=== PATIENT | female | born 1940 | race Caucasian/White ===

== ENCOUNTER 2016-12-03 13:42 | Outpatient (RCR) | payer MEDICARE ==
[~2016-12-03 13:42] MED LIST changes: -ASPI-860 PO; -ASPI325T4 PO; -CHOL100092 PO; -INDA1.25 PO; -RED600CA2 PO; -SACC250C9 PO
--- NOTE | 2016-12-06 13:16 | PT/OT/ST INITIAL EVALUATION ---
Department of Health and Human Services Form Approved Health Care Financing Administration OMB No. [id number] PLAN OF CARE/ASSESSMENT FOR OUTPATIENT REHABILITATION (Complete for Initial Claims Only) 1. LAST NAME Karan FIRST NAME Monik Hughes 2. ACC # [id number] 3. [id number] 4. PROVIDER NO. [id number] 5. 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 PRIOR THERAPY (Same condition) 7. PRIMARY DX History of CVA with residual deficit 8. SECONDARY DX Cervical dysphagia 9. ONSET DATE September 07, 2016 10. REFERRAL DATE November 17, 2016 11. SOC. DATE December 03, 2016 1356 12. CHARGES 13. G. CODES Currently [id number] 1 to 19% impaired. Goal [id number]-FA 1 to 19% impaired. Discharge [id number] 1 to 19% impaired. 14. PRIOR LEVEL OF FUNCTION; PERTINENT HISTORY (Prior therapy results, reason for referral.) S: Prior to today's therapy session, the patient did consent to today's evaluation and treatment. The patient is a 75-year-old female referred to speech therapy by Dr. Busch to address cervical dysphagia. The patient rates her overall and general health as fair. 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 She states she had cataract surgery and after her cataract surgery she began having vertigo. She had MRIs and CTs completed that showed she had 2 small acute CVAs. She then had some heart testing done and had a pacemaker placed. She was not having any trouble swallowing and then November 12, she began having swallowing difficulties. She feels like it is mainly difficulties with "scratchy things", which are biscuits or peanut brittle or bread and she has to take a drink to help wash her food down. She feels like her swallow is slower. Prior level of function: Prior to this, she has not had any difficulties. Therapy History: She has never received therapy for this. Occupational and social history: She has lives at home. Aggravating factors: Include things such as biscuits or "scratchy foods." Diagnostic tests: She has had no prior diagnostic testing for this. Past medical history includes cervical dystonia, in which she receives Botox in her neck for approximately every 3 months. She does have a pacemaker. She had 2 small acute strokes, vertigo and cataract surgery in August. Medication list: Medications were reviewed with the patient. 15. INITIAL ASSESSMENT/SAFETY PRECAUTIONS/MEDICAL COMPLICATIONS (Level of function at start of care. Be specific, use objective measures, list problems.) O: APPEARANCE AND OBSERVATION: Upon assessment, the patient was given a modified barium swallow study. She was given pudding-thick through thin liquid consistencies, ground meat, crackers and a 10-mm barium pill. On all of these the patient demonstrated efficient oral motility. She was able to clear her oral cavity and she had proper bolus control of the posterior tongue. She had a pharyngeal swallow trigger without delay. She did not initially clear her vallecula; however, she independently cleared her vallecula with a secondary swallow. She had no piriform sinus residue, no laryngeal penetration and no aspiration. 16. INITIAL POC: (Specify procedures, modalities, short and fdc goals) A: The patient presents with a mild pharyngeal dysphagia secondary to vallecula residue. The patient demonstrates a mild pharyngeal dysphagia secondary to mild vallecula residue, which was cleared by a secondary swallow. Recommend regular diet with thin liquids followed with a secondary swallow as needed for pharyngeal residue, however, no pharyngeal residue was seen on the exam. The patient demonstrated understanding of this and it was explained to her if she feels like her swallowing is not getting better; she can always come in for therapy. This is not something that she wanted to do at this time. PLAN: Plan to discharge this patient at this time secondary to evaluation only. 17. FUNCTIONAL LEVEL (End of claim period) 18. PHYSICIAN SIGNATURE ? ON FILE OR ENTER HERE: 19. DATE: I certify the need for these services furnished under this plan of care and if for partial hospitalization. 20. CERTIFICATION FROM THROUGH FORM FA-700
== END 2016-12-03 15:00 | disposition home or self-care (01) ==
LOC: ST 13:42
PROVIDERS: ATTEND Surgery
DX: R13.19 Other dysphagia (principal); I69.30 Unspecified sequelae of cerebral infarction
CPT/HCPCS: 92611; G8996; G8997; G8998

== ENCOUNTER → 2016-12-03 | Outpatient (CLI) | payer MEDICARE ==
[~2016-12-03] MED LIST: ACID1TAB4 PO; ASPI-504 PO; ASPI-860 PO; ASPI325T4 PO; ATOR10TA56 PO; BENA40TA5 PO; CART1TAB5 PO; CHOL100092 PO; CYAN10007 PO; DIFL5DRO OP; DIPH1TAB25 PO; GARL500T PO; HC2.5C30 TOP; IBAN150T9 PO; INDA1.25 PO; LOPE2CAP29 PO; LORA1TAB PO; MECL-105 PO; MECL-115 PO; MELO-249 PO; NEPA1.7D OP; OMEP20CA12 PO; POTA10TA10 PO; PRED20TA PO; PYRI25TA3 PO; RED600CA2 PO; SACC250C9 PO; THIO200T PO; VITA400T9 PO; [UNRECOGNIZED DRUG - CODE] PO
--- NOTE | 2016-12-03 14:20 | Diagnostic Imaging Report ---
EXAM: Fluoroscopic modified barium swallow. DATE: December 03, 2016. INDICATION: 75-year-old female, cervical dysplasia. COMPARISON: None. FINDINGS: There is no penetration or aspiration of multiple administered barium coated consistencies. There was prompt passage of a barium coated tablet into the lower esophagus. IMPRESSION: 1. Unremarkable modified barium swallow examination. No evidence of penetration or aspiration. Dictated by: Dictated on workstation # [id number]
== END ==
LOC: RAD 12:50
PROVIDERS: ATTEND Surgery
DX: R13.19 Other dysphagia (principal); I69.30 Unspecified sequelae of cerebral infarction
CPT/HCPCS: 74230

== ENCOUNTER 2016-12-23 11:25 | Outpatient (RCR) | payer MEDICARE ==
[2017-02-01] MEDS ORDERED: RED600CA2 PO (11:39)
[2017-02-01] MEDS ORDERED: ASPI325T4 PO (11:39)
[2017-02-01] MEDS ORDERED: SACC250C9 PO (11:39)
[2017-02-01] MEDS ORDERED: INDA1.25 PO (11:39)
[2017-02-01] MEDS ORDERED: ASPI-860 PO (11:39)
[2017-02-01] MEDS ORDERED: CHOL100092 PO (11:40)
== END 2017-03-23 | disposition home or self-care (01) ==
LOC: DT 11:25
PROVIDERS: ATTEND Family Medicine
DX: E66.9 Obesity, unspecified (principal); Z68.33 Body mass index [BMI] 33.0-33.9, adult

== ENCOUNTER → 2017-01-31 | Outpatient (CLI) | payer MEDICARE | LOC: LAB 08:43 | PROVIDERS: ATTEND Surgery | DX: Z01.818 Encounter for other preprocedural examination (principal); R53.83 Other fatigue; K43.9 Ventral hernia without obstruction or gangrene | CPT/HCPCS: 36415; 84132; 85014; 85018 ==

== ENCOUNTER 2017-02-02 06:24 | Day surgery (SDC) | payer MEDICARE ==
--- NOTE | 2017-02-01 11:43 | NUR ---
EKG REQUESTED FROM DR. PORRAS'S OFFICE.
[2017-02-02] VITALS (14 sets, daily range): BP systolic 120–166; BP diastolic 57–85
[~2017-02-02] VITALS: Ht 166.4 cm; Wt 84.5 kg
[~2017-02-02 06:24] MED LIST changes: -ACID1TAB4 PO; -ASPI-504 PO; -ATOR10TA56 PO; -BENA40TA5 PO; -CART1TAB5 PO; -CYAN10007 PO; -DIFL5DRO OP; -DIPH1TAB25 PO; -GARL500T PO; -HC2.5C30 TOP; -IBAN150T9 PO; +LACTATED RINGERS 1,000 ML IV SCH; -LOPE2CAP29 PO; -LORA1TAB PO; -MECL-105 PO; -MECL-115 PO; -MELO-249 PO; -NEPA1.7D OP; -OMEP20CA12 PO; -POTA10TA10 PO; -PRED20TA PO; -PYRI25TA3 PO; +SODIUM CHLORIDE FLUSH 3 ML SYR IV PRN; -THIO200T PO; -VITA400T9 PO; -[UNRECOGNIZED DRUG - CODE] PO; +ceFAZolin 2,000 MG in SODIUM CHLORIDE VIAL (PF) 20 ML IV SCH
[2017-02-02] MEDS ORDERED: BUPIVACAINE/EPINEPHRINE 0.5%-1:200,000 (MARCAINE) 30 ML VIAL INJ ONE (06:55)
[2017-02-02] MEDS ORDERED: MIDAZOLAM 2 MG/2 ML (VERSED) VIAL ONE (07:12)
[2017-02-02] MEDS ORDERED: ALFENTANIL 500 MCG/ML (ALFENTA) 5 ML AMP IV ONE (07:12)
[2017-02-02] MEDS ORDERED: ONDANSETRON 2 MG/ML (Z0FRAN) 2 ML VIAL ONE (07:53)
[2017-02-02] MEDS ORDERED: ROCURONIUM 50 MG/5 ML (ZEMURON) VIAL IV ONE (07:53)
[2017-02-02] MEDS ORDERED: diphenhydrAMINE 50 MG/ML INJ (BENADRYL) ONE (07:54)
[2017-02-02] MEDS ORDERED: ceFAZolin 1000 MG (ANCEF) VIAL ONE (07:59)
[2017-02-02] MEDS ORDERED: SODIUM CHLORIDE FLUSH 10 ML ONE (07:59)
[2017-02-02] MEDS ORDERED: GLYCOPYRROLATE 0.2 MG/ML (ROBINUL) 1 ML VIAL ONE (08:22)
[2017-02-02] MEDS ORDERED: NEOSTIGMINE 1 MG/ML SYRINGE ONE (08:22)
[2017-02-02] MEDS ORDERED: KETOROLAC 60 MG/2 ML (TORADOL) VIAL IM ONE (08:35)
[2017-02-02] MEDS ORDERED: PROMETHAZINE 25 MG (PHENERGAN) SUPP PR PRN (09:05)
[2017-02-02] MEDS ORDERED: morphine INJ 2 MG/ML 1 ML SYRINGE IV PRN (09:05)
[2017-02-02] MEDS: HYDROcodone/APAP 5 MG/325 MG (NORCO) TAB PO PRN ×4 (09:46→23:50)
--- NOTE | 2017-02-02 14:00 | NUR ---
Report to Dr Busch that pt wishes to stay the night due to being dizzy when walking. Daughter here encouraging pt to stay the night for safety measures.
--- NOTE | 2017-02-02 14:34 | NUR ---
report to Tatiana regarding pt coming upstairs to be admitted overnight. pt resting without c/o. icision well approximated.without bleeding
--- NOTE | 2017-02-02 14:50 | NUR ---
Pt admitted to 310 via w/c accompanied by Kesha, SPANISH LANGUAGE LECTURER. Pt ambulates to bed with minimal assist. Pt rates pain 6/10, but had just received pain meds prior to arrival to the floor. Skin warm, dry, intact. Resprs nonlabored, even on RA. Call light within reach.
[2017-02-02] MEDS ORDERED: NS FLUSH 3 ML PRN IV (17:30)
[2017-02-02] MEDS ORDERED: NS FLUSH 10 ML PRN IV (17:30)
[2017-02-02] MEDS: lisINopril 40 MG (PRINIVIL) TABLET PO SCH (17:41)
--- NOTE | 2017-02-02 18:30 | NUR ---
Pt resting in bed, reading a book. States she is sore. Requests warm salt water at bedtime for her sore throat. Skin warm, dry, intact. Resprs nonlabored, even on RA. Incision clean, dry, intact. Edges well approximated. SL intact. Pt denies needs.
--- NOTE | 2017-02-02 19:40 | NUR ---
Pt is sitting up in bed reading a book, alert and oriented x 4, Resp are even and nonlabored, LCTAB, HRRR, has pacemaker, BS are hypoactive x 4 quadrants, has 2 inch incision closed with Dermabond, well approximated. Pt asks when she is able to have her next pain pill, this RN informs her she can have it at any time. Pt reports she thinks she should take it since it was due at 1840, this RN explains that it is a medication that she has to ask for, that it is not scheduled. Pt states well I'm asking for it now, this RN asks pt if she would like 1 or 2 tabs, Pt states, I don't know, I don't know anything about pills. Ask pt what she rates her pain on a 1-10 scale, pt states I'm fine lying in bed, but it hurts when I get up. I told pt we would start with 1 tab of [place] 5/325mg PO for discomfort at this time. Pt verbalized understanding. Will continue to monitor.
--- NOTE | 2017-02-02 20:03 | NUR ---
Pt has call light on Katelynn LOCATE TECHNICIAN answers call light. Pt is wanting Katelynn to lift her out of bed. Katelynn states, "You need to try and do as much as possible for yourself as you were suppose to go home today, and will be going home in the am." Pt states, "Who told you I was suppose to go home today? Do you want me to leave now? Dr. Busch said I could stay." Katelynn stated, "No that's not what I meant, you had surgery today that is normally an outpatient procedure, but since you were dizzy they kept you overnight. I just want you to do as much as you can, so you are prepared when you go home in the morning. Pt verbalizes understanding at this time. Will continue to monitor.
--- NOTE | 2017-02-02 23:45 | NUR ---
Pt is up to restroom and reports pain 7/10 at this time. Gave 2 tabs PO of [place] 5/325mg for discomfort. Will continue to monitor.
[2017-02-03 00:31] VITALS: BP 168/73
--- NOTE | 2017-02-03 03:59 | NUR ---
Pt has been resting in bed asleep since 114, does not appear in pain or discomfort at this time. Pt has tolerated food with out difficulty, has been up to restroom several times and voided. Call light is in reach, will continue to monitor.
[2017-02-03 04:36] VITALS: BP 139/69
[2017-02-03 07:34] VITALS: BP 133/60
--- NOTE | 2017-02-03 08:00 | NUR ---
Pt. sitting up at side of bed for breakfast. Pt. reports pain rated 8/10 to abdomen when going from laying to sitting. Pt. requests pain medication. See EMAR. Pts. abdomen remains tender with incision BRENT, intact. Pt. reports that pacemaker scar remains very tender, placed in September.
[2017-02-03] MEDS: lisINopril 40 MG (PRINIVIL) TABLET PO SCH (08:04)
[2017-02-03] MEDS: HYDROcodone/APAP 5 MG/325 MG (NORCO) TAB PO PRN (08:04)
[2017-02-03] MEDS ORDERED: NS FLUSH 3 ML DAILY IV SCH (09:00)
--- NOTE | 2017-02-03 11:24 | NUR ---
Pt. feels she is ready to go home. Verified with Dr. Busch that she is ok to be discharged and he does not need to see her. Discharge instructions reviewed. Pts. daughter will pick her up to take her home.
--- NOTE | 2017-02-03 11:45 | NUR ---
Pts. daughter here to take pt. home. Pt. dismissed at this time via WC accompanied by DRAWING KILN OPERATOR and daughter. All belongings sent with pt.
== END 2017-02-03 11:45 | disposition home or self-care (01) ==
LOC: ASC 06:24 → MED/SURG 14:46 → ASC 02-03 11:45
PROVIDERS: ATTEND Surgery
DX: K43.9 Ventral hernia without obstruction or gangrene (principal); I10 Essential (primary) hypertension; I69.291 Dysphagia following other nontraumatic intracranial hemorrhage; R13.19 Other dysphagia; Z79.82 Long term (current) use of aspirin; Z95.0 Presence of cardiac pacemaker
CPT/HCPCS: 49570; 93005; A9270; C1781; J0690; J1200; J1885; J2250; J2405; J2710; J3490; J7050; J7120

== ENCOUNTER 2017-04-13 10:00 | Outpatient (RCR) | payer MEDICARE ==
[~2017-04-13 10:00] MED LIST changes: +ACID1TAB4 PO; +ASPI-504 PO; +ASPI-860 PO; +ASPI325T4 PO; +ATOR10TA56 PO; +BENA40TA5 PO; +CART1TAB5 PO; +CHOL100092 PO; +CYAN10007 PO; +DIFL5DRO OP; +DIPH1TAB25 PO; +GARL500T PO; +HC2.5C30 TOP; +IBAN150T9 PO; +INDA1.25 PO; -LACTATED RINGERS 1,000 ML IV SCH; +LOPE2CAP29 PO; +LORA1TAB PO; +MECL-105 PO; +MECL-115 PO; +MELO-249 PO; +NEPA1.7D OP; +OMEP20CA12 PO; +POTA10TA10 PO; +PRED20TA PO; +PYRI25TA3 PO; +RED600CA2 PO; +SACC250C9 PO; -SODIUM CHLORIDE FLUSH 3 ML SYR IV PRN; +THIO200T PO; +VITA400T9 PO; +[UNRECOGNIZED DRUG - CODE] PO; -ceFAZolin 2,000 MG in SODIUM CHLORIDE VIAL (PF) 20 ML IV SCH
== END 2017-04-26 17:11 | disposition home or self-care (01) ==
LOC: DT 10:00
PROVIDERS: ATTEND Family Medicine
DX: E66.8 Other obesity (principal); Z68.30 Body mass index [BMI] 30.0-30.9, adult
CPT/HCPCS: G0447 ×2